=== PATIENT | female | born 1985 | race Caucasian/White ===

== ENCOUNTER 2017-10-24 10:17 | Outpatient (CLI) ==
[2014-09-03 18:27] VITALS: BMI 22.7
== END 2017-10-24 10:18 | disposition home or self-care (01) ==
LOC: RHC-LAB 10:17
PROVIDERS: ATTEND Nurse Practitioner Family
DX: Z00.00 Encounter for general adult medical examination without abnormal findings (principal); F41.8 Other specified anxiety disorders; R73.9 Hyperglycemia, unspecified; Z72.0 Tobacco use
CPT/HCPCS: 36415; 80053; 80061; 83036; 84443; 85025

== ENCOUNTER 2019-03-29 21:46 | Emergency (ER) ==
[2019-03-29 21:58] VITALS: BP 120/81; TEMP 97.7; BMI 34.1
--- NOTE | 2019-03-29 22:15 | ED.PDOC ---
General ED Provider: Dr. REGINA GORDON Chief Complaint: Back Pain Stated Complaint: Back pain - two weeks. No falls, no injury, no prior back history. Nothing makes better or worse. Has some urinary urgency, frequency and burning. Time Seen by Physician: 22:08 Mode of Arrival: Walk-In Information Source: Patient Primary Care Provider: UNRULY MCGUIRE Nursing and Triage Documentation Reviewed and Agree: Yes Does patient meet sepsis criteria?: No System Inflammatory Response Syndrome: Not Applicable Sepsis Protocol: For patient's 13 years and over: Temp is 96.8 and below OR 101 and greater Pulse >90 BPM Resp >20/minute Acutely Altered Mental Status Are patient's symptoms suggestive of a new infection, such as: -Pneumonia -Skin, Soft Tissue -Endocarditis -UTI -Bone, Joint Infection -Implantable Device -Acute Abdominal Infection -Wound Infection -Meningitis -Blood Stream Catheter Infection -Unknown Review of Systems - Review Of Systems Constitutional: Reports: No symptoms Respiratory: Reports: No symptoms Cardiac: Reports: No symptoms Musculoskeletal: Reports: Back pain (low ) All Other Systems: Reviewed and Negative Past Medical History - Past Medical History Previously Healthy: Yes Endocrine: Reports: Dyslipidemia Cardiovascular: Reports: Hypertension Respiratory: Reports: None Hematological: Reports: None Gastrointestinal: Reports: GERD Genitourinary: Reports: None Neuro/Psych: Reports: Anxiety, Depression Musculoskeletal: Reports: Back Pain Cancer: Reports: None Last Menstrual Period: 4 WEEKS AGO - Surgical History General Surgical History: Reports: None - Family History Family History: Reports: Unknown - Social History Smoking Status: Current every day smoker, Light tobacco smoker Hx Substance Use: No Alcohol Screening: None - Immunizations Tetanus Shot up to Date: (UNKNOWN) Physical Exam - Physical Exam Appearance: Well-appearing Ill-appearing: None Pain Distress: None Eyes: SADIE, Conjunctiva clear ENT: Oropharynx normal Neck: Supple Respiratory: Airway patent, Breath sounds clear, Respirations nonlabored Cardiovascular: RRR, Pulses normal GI/: Soft, Nontender Musculoskeletal: Normal strength, ROM intact, Limited ROM, Limited strength Skin: Warm, Dry, Normal color Neurological: Sensation intact, Motor intact, Alert, Oriented Psychiatric: Affect appropriate, Mood appropriate Critical Care Note - Critical Care Note Total Time (mins): 25 Course - Course Hematology/Chemistry: 03/29/19 23:05 03/29/19 23:05 Orders, Labs, Meds: Lab Review 03/29/19 03/29/19 03/29/19 22:18 23:05 23:05 WBC 16.87 H RBC 4.73 Hgb 14.6 Hct 43.9 MCV 92.8 MCH 30.9 MCHC 33.3 RDW Coeff of Rajeev 13.3 Plt Count 363 Immature Gran % (Auto) 0.2 Neut % (Auto) 50.4 Lymph % (Auto) 40.5 Barry % (Auto) 5.5 Eos % (Auto) 2.8 Baso % (Auto) 0.6 Immature Gran # (Auto) 0.0 Neut # (Auto) 8.5 H Lymph # (Auto) 6.8 H Barry # (Auto) 0.9 Eos # (Auto) 0.5 Baso # (Auto) 0.1 Sodium 139.8 Potassium 3.77 Chloride 101.5 Carbon Dioxide 29.8 Anion Gap 12.27 BUN 9.5 Creatinine 0.75 Estimated GFR (MDRD) 88.00 BUN/Creatinine Ratio 12.66 Glucose 98.0 Calcium 9.67 Total Bilirubin 0.75 AST 20.9 ALT 22.5 Alkaline Phosphatase 66.6 Total Protein 7.87 Albumin 4.74 Globulin 3.13 Albumin/Globulin Ratio 1.51 Urine Color Yellow Urine Clarity Slightly Urine pH 6.0 Ur Specific [place] 1.015 Urine Protein Negative Urine Glucose (UA) Negative Urine Ketones 1+ Urine Blood 3+ Urine Nitrite Negative Urine Bilirubin Negative Urine Urobilinogen 1.0 Ur Leukocyte Esterase Negative Urine Microscopic RBC 20-30 Urine Microscopic WBC 2-5 Ur Squamous Epith Cells 10-20 Ur Transition Epith Cell 0-2 Amorphous Sediment Trace Urine Bacteria 3+ Orders Category Date Time Status CBC W/ AUTO DIFF Stat LAB 03/29/19 23:05 Completed COMPREHENSIVE METABOLIC PANEL Stat LAB 03/29/19 23:05 Completed URINALYSIS C & S IF INDICATED Stat LAB 03/29/19 22:18 Completed URINE CULTURE Stat LAB 03/29/19 22:18 Results Vital Signs: Temp Pulse Resp BP Pulse Ox 03/29/19 21:47 97.7 F 67 18 120/81 96 Departure - Departure Time of Disposition: 23:55 Disposition: HOME SELF-CARE Discharge Problem: Low back pain Hematuria Qualifiers: Hematuria type: other microscopic Qualified Code(s): R31.29 - Other microscopic hematuria Instructions: Back Pain (ED) Condition: Good Pt referred to PMD for follow-up: Yes (Call for appointment) IPMP verified?: No Additional Instructions: Call for appointment with primary care; tell them you were seen in the ER and that you have a significant amount of red blood cells in your urine but no suggestion of a urinary tract infection. Also discuss your white blood cell count which you believe you have had in the past. If the character of the pain changes, or you have a fever of 101.5 return to ER meanwhile. Allergies/Adverse Reactions: Allergies No Known Allergies Allergy (Verified 03/29/19 21:55) Home Medications: Ambulatory Orders Citalopram Hydrobromide [Celexa] 20 mg PO BEDTIME 03/29/19
== END 2019-03-30 00:07 | disposition home or self-care (01) ==
LOC: ED 21:46
DX: M54.5 Low back pain (principal); R31.29 Other microscopic hematuria; F17.210 Nicotine dependence, cigarettes, uncomplicated
CPT/HCPCS: 36415; 80053; 81001; 85025; 87086; 87186; 99283